=== PATIENT | female | born 1985 | race Caucasian/White ===

== ENCOUNTER 2016-08-23 13:39 | Emergency (ER) | payer SELFPAY ==
[~2016-08-23] VITALS: Ht 160 cm; Wt 75.0 kg
[~2016-08-23 13:39] MED LIST: AMOX875 PO; BACT800T5 PO; CEPH500C3 PO; FLUT1SPR9; HYDR-3533 PO; IBUP800T23 PO; ZITH250T PO
[2016-08-23 13:40] VITALS: BP 168/93; PULSE 98; RESP 16; TEMP 98.2; O2SAT 98
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
[2016-08-23] MEDS ORDERED: BACT800T5 PO (15:20)
== END 2016-08-23 15:46 | disposition home or self-care (01) ==
LOC: NEPK 13:39
DX: L03.114 Cellulitis of left upper limb (principal); S30.811A Abrasion of abdominal wall, initial encounter; Z72.0 Tobacco use; Z87.09 Personal history of other diseases of the respiratory system; Z86.59 Personal history of other mental and behavioral disorders; X58.XXXA Exposure to other specified factors, initial encounter
CPT/HCPCS: 99283

== ENCOUNTER 2016-09-02 12:51 | Emergency (ER) | payer SELFPAY ==
[~2016-09-02] VITALS: Ht 162.6 cm; Wt 69.0 kg
[2016-09-02 12:53] VITALS: BP 124/84; PULSE 112; RESP 20; TEMP 98.6; O2SAT 98
[2016-09-02 13:00] VITALS: BP 118/76; PULSE 108; RESP 19; O2SAT 98
[2016-09-02] MEDS ORDERED: TRAZ100T6 PO (13:10)
[2016-09-02] MEDS ORDERED: LAMO25 PO (13:10)
[2016-09-02] MEDS ORDERED: IBUPROFEN 600 MG TAB PO ONE (13:30)
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
== END 2016-09-02 15:12 | disposition home or self-care (01) ==
LOC: NEPD 12:51
DX: T74.21XA Adult sexual abuse, confirmed, initial encounter (principal); L02.512 Cutaneous abscess of left hand; J45.909 Unspecified asthma, uncomplicated; F31.9 Bipolar disorder, unspecified; K21.9 Gastro-esophageal reflux disease without esophagitis; F17.210 Nicotine dependence, cigarettes, uncomplicated; Z79.899 Other long term (current) drug therapy
CPT/HCPCS: 10060; 87070; 87205

== ENCOUNTER 2016-11-17 18:29 | Emergency (ER) | payer SELFPAY ==
[~2016-11-17] VITALS: Ht 162.6 cm; Wt 75.0 kg
[~2016-11-17 18:29] MED LIST changes: -AMOX875 PO; -CEPH500C3 PO; -FLUT1SPR9; -HYDR-3533 PO; -IBUP800T23 PO; +LAMO25 PO; +TRAZ100T6 PO; -ZITH250T PO
[2016-11-17 18:33] VITALS: BP 119/84; PULSE 94; RESP 13; TEMP 97.4; O2SAT 97
== END 2016-11-17 18:55 | disposition left against medical advice (07) ==
LOC: NED 18:29
DX: R10.9 Unspecified abdominal pain (principal)
CPT/HCPCS: 99281

== ENCOUNTER 2017-06-07 20:18 | Inpatient (IN) | payer SELFPAY ==
[~2017-06-07] VITALS: Ht 162.6 cm; Wt 70.8 kg
[~2017-06-07 20:18] MED LIST changes: +TRAZ100T10 PO; -TRAZ100T6 PO
[2017-06-07 20:33] VITALS: BP 163/102; PULSE 80; RESP 16; TEMP 98; O2SAT 99
--- NOTE | 2017-06-07 21:28 | PD ---
HPI Chief Complaint: Abdominal Pain Time Seen by Provider: 21:18 Travel History International Travel<30 days: No Contact w/Intl Traveler<30days: No Traveled to known affect area: No History of Present Illness HPI 32yo F with PMH of bipolar disorder presents to the ED with c/o abdominal pain today. Said pain is mainly upper abdomen and feels like sharp and pressure. Had nausea but no vomiting. Pt said she had coughed once and had burning in her chest after the cough. However, denies any chest pain or sob now. Denies any fever, vomiting, diarrhea, dysuria, hematuria, vaginal bleeding or discharge. PFSH Past Medical History Arthritis: No Asthma: Yes (USES ALBUTEROL ) Autoimmune Disease: No Blood Disorders: No Bipolar Disorder: Yes Anxiety: Yes Depression: Yes Heart Rhythm Problems: No Cancer: No Cardiovascular Problems: No High Cholesterol: No Chemotherapy: No Chest Pain: No Congestive Heart Failure: No COPD: No Cerebrovascular Accident: No Diabetes: No Diminished Hearing: No Endocrine: No GERD: Yes Glaucoma: No Genitourinary: No Headaches: Yes (REPORTS H/A ON ADMISSION TO ED) Hepatitis: No Hiatal Hernia: No Hypertension: No Immune Disorder: No Kidney Stones: No Musculoskeletal: No Neurologic: No Psychiatric: Yes Reproductive: No Respiratory: Yes (ASTHMA) Myocardial Infarction: No Radiation Therapy: No Renal Failure: No Seizures: No Sickle Cell Disease: No Sleep Apnea: No Thyroid Disease: No Ulcer: No ?: Unknown LMP: 05/08/17 : 1 Para: 0 : 1 Past Surgical History Surgical History: No Previous Surgery Abdominal Surgery: No AICD: No Arteriovenous Shunt: No Cardiac Surgery: No Ear Surgery: No Endocrine Surgery: No Eye Surgery: No Genitourinary Surgery: No Gynecologic Surgery: No Insulin Pump: No Joint Replacement: No Neurologic Surgery: No Oral Surgery: No Pacemaker: No Thoracic Surgery: No Other Surgery: No Social History Alcohol Use: Yes (OCCASSIONAL BEER) Tobacco Use: Yes (ONE CIGARETTE A DAY) Substance Use: Yes (marijuana) Allergies-Medications (Allergen,Severity, Reaction): Coded Allergies: No Known Allergies (Verified Adverse Reaction, Unknown, 06/07/17) Reported Meds & Prescriptions Reported Meds & Active Scripts Active Reported Trazodone (Trazodone HCl) 100 Mg Tablet 100 Mg PO HS Lamictal (Lamotrigine) 25 Mg Tab 25 Mg PO DAILY Review of Systems Except as stated in HPI: all other systems reviewed are Neg Physical Exam Narrative GENERAL: 32yo F in mild distress. SKIN: Focused skin assessment warm/dry. HEAD: Atraumatic. Normocephalic. EYES: Pupils equal and round. No scleral icterus. No injection or drainage. ENT: No nasal bleeding or discharge. Mucous membranes pink and moist. NECK: Trachea midline. No JVD. CARDIOVASCULAR: Regular rate and rhythm. No murmur appreciated. RESPIRATORY: No accessory muscle use. Clear to auscultation. Breath sounds equal bilaterally. GASTROINTESTINAL: Abdomen soft, +TTP epigastric and left upper abdomen. No RLQ ttp. No rebound tenderness or guarding. MUSCULOSKELETAL: No obvious deformities. No clubbing. No cyanosis. No edema. NEUROLOGICAL: Awake and alert. No obvious cranial nerve deficits. Motor grossly within normal limits. Normal speech. PSYCHIATRIC: Appropriate mood and affect; insight and judgment normal. Data Data Last Documented VS Vital Signs Date Time Temp Pulse Resp B/P (MAP) Pulse Ox O2 Delivery O2 Flow Rate FiO2 06/07/17 20:36 16 06/07/17 20:33 98.0 80 163/102 (122) 99 Orders Orders Complete Blood Count With Diff (06/07/17 21:23) Comprehensive Metabolic Panel (06/07/17 21:23) Lipase (06/07/17 21:23) Urinalysis - C+S If Indicated (06/07/17 21:23) Ondansetron Inj (Zofran Inj) (06/07/17 21:30) Al-Mag Hy-Si 40-40-4 Mg/Ml Liq (Mag-Al P (06/07/17 21:30) Lidocaine 2% Viscous (Xylocaine 2% Visco (06/07/17 21:30) Ed Urine Pregnancytest Poc (06/07/17 21:23) Ct Abd/Pel W Iv Contrast(Rout) (06/07/17 ) Sodium Chlor 0.9% 1000 Ml Inj (Ns 1000 M (06/07/17 22:45) Iohexol 350 Inj (Omnipaque 350 Inj) (06/07/17 23:11) Ketorolac Inj (Toradol Inj) (06/07/17 23:30) Admit Order (Ed Use Only) (06/07/17 23:41) Labs Laboratory Tests Test 06/07/17 21:50 White Blood Count 5.3 TH/MM3 Red Blood Count 4.06 MIL/MM3 Hemoglobin 12.0 GM/DL Hematocrit 36.1 % Mean Corpuscular Volume 89.0 FL Mean Corpuscular Hemoglobin 29.7 PG Mean Corpuscular Hemoglobin Concent 33.3 % Red Cell Distribution Width 16.0 % Platelet Count 237 TH/MM3 Mean Platelet Volume 8.5 FL Neutrophils (%) (Auto) 49.9 % Lymphocytes (%) (Auto) 32.9 % Monocytes (%) (Auto) 12.8 % Eosinophils (%) (Auto) 3.3 % Basophils (%) (Auto) 1.1 % Neutrophils # (Auto) 2.7 TH/MM3 Lymphocytes # (Auto) 1.8 TH/MM3 Monocytes # (Auto) 0.7 TH/MM3 Eosinophils # (Auto) 0.2 TH/MM3 Basophils # (Auto) 0.1 TH/MM3 CBC Comment DIFF FINAL Differential Comment Urine Color LIGHT-YELLOW Urine Turbidity CLEAR Urine pH 7.0 Urine Specific Durand 1.006 Urine Protein NEG mg/dL Urine Glucose (UA) NEG mg/dL Urine Ketones NEG mg/dL Urine Occult Blood NEG Urine Nitrite NEG Urine Bilirubin NEG Urine Urobilinogen LESS THAN 2.0 MG/DL Urine Leukocyte Esterase NEG Urine WBC LESS THAN 1 /hpf Urine Squamous Epithelial Cells 4 /hpf Microscopic Urinalysis Comment CULT NOT INDICATED Blood Urea Nitrogen 5 MG/DL Creatinine 0.56 MG/DL Random Glucose 107 MG/DL Total Protein 6.1 GM/DL Albumin 2.8 GM/DL Calcium Level 8.3 MG/DL Alkaline Phosphatase 141 U/L Aspartate Amino Transf (AST/SGOT) 536 U/L Alanine Aminotransferase (ALT/SGPT) 433 U/L Total Bilirubin 0.6 MG/DL Sodium Level 138 MEQ/L Potassium Level 3.7 MEQ/L Chloride Level 107 MEQ/L Carbon Dioxide Level 23.4 MEQ/L Anion Gap 8 MEQ/L Estimat Glomerular Filtration Rate 127 ML/MIN Lipase 594 U/L [facility] Medical Decision Making Medical Screen Exam Complete: Yes Emergency Medical Condition: Yes Differential Diagnosis Gastritis vs. peptic ulcer disease vs. pancreatitis vs. GERD Narrative Course 32yo F with upper abdominal pain and nausea today. Labs reviewed, no leukocytosis. H/H normal. Lipase elevated at 594. Liver enzymes also elevated which is new from prior. Pt does admit to recent binge drinking and said she does not drink alcohol every day but does drink a lot. UA showed WBC less than 1. Culture not indicated. Pt given zofran and GI cocktail. Pt reevaluated at bedside and pain has improved but still a little when I palpate. CT a/p showed CT findings of gallbladder wall thickening. No calcified gallstones however. Patient's pain is more epigastric and does not have pain with RUQ palpation. Will admit patient for pancreatitis, transaminitis and GI consult. Discussed with Dr. Cedeno and accepted to her service. Diagnosis Primary Impression: Pancreatitis Qualified Codes: K85.90 - Acute pancreatitis without necrosis or infection, unspecified Admitting Information Admitting Physician Requests: it Geovanna Anne DO June 07, 2017 21:28
[2017-06-07] MEDS ORDERED: ONDANSETRON HCL 4 MG/2 ML VIAL IVP ONE (21:30)
[2017-06-07] MEDS ORDERED: LIDOCAINE VISCOUS 2% SOLN 15 ML UDC PO ONE (21:30)
[2017-06-07] MEDS ORDERED: ALUMINUM/MAGNESIUM/SIMETH 30 ML CUP PO ONE (21:30)
[2017-06-07 22:01] LABS: AUTOMATED NEUTROPHIL # 2.7 TH/MM3 (1.8-7.7); BASOPHIL # 0.1 TH/MM3 (0-0.2); BASOPHIL % 1.1 % (0.0-2.0); EOSINOPHIL # 0.2 TH/MM3 (0-0.4); EOSINOPHIL % 3.3 % (0.0-4.0); HEMATOCRIT 36.1 % (35.0-46.0); LYMPH % 32.9 % (9.0-44.0); LYMPHOCYTE # 1.8 TH/MM3 (1.0-4.8); MEAN CORPUSCULAR HEMOGLOBIN 29.7 PG (27.0-34.0); MEAN CORPUSCULAR HGB CONC 33.3 % (32.0-36.0); MEAN PLATELET VOLUME 8.5 FL (7.0-11.0); MONO % 12.8 % (0.0-8.0); MONOCYTE # 0.7 TH/MM3 (0-0.9); NEUT % 49.9 % (16.0-70.0); PLATELET COUNT 237 TH/MM3 (150-450); RED BLOOD COUNT 4.06 MIL/MM3 (4.00-5.30); WHITE BLOOD COUNT 5.3 TH/MM3 (4.0-11.0)
[2017-06-07 22:13] LABS: BILIRUBIN, URINE NEG (NEG); BLOOD, URINE NEG (NEG); GLUCOSE,URINE NEG (NEG); KETONE, URINE NEG (NEG); NITRITE,URINE NEG (NEG); SQUAMOUS EPITHELIAL CELL URINE 4 /hpf (0-5); URINE COLOR LIGHT-YELLOW (YELLW/STRAW); URINE LEUKOCYTE ESTERASE NEG (NEG)
[2017-06-07 22:20] LABS: ALBUMIN 2.8 GM/DL (3.4-5.0); AST (GOT) 536 U/L (15-37); BICARBONATE 23.4 MEQ/L (21.0-32.0); BLOOD UREA NITROGEN 5 MG/DL (7-18); CALCIUM 8.3 MG/DL (8.5-10.1); CHLORIDE 107 MEQ/L (98-107); CREATININE 0.56 MG/DL (0.50-1.00); GLOMERULAR FILTRATION RATE 127 ML/MIN (>89); GLUCOSE,RANDOM 107 MG/DL (74-106); SODIUM (NA) 138 MEQ/L (136-145)
[2017-06-07 22:21] LABS: ALT (GPT) 433 U/L (10-53)
[2017-06-07 22:23] LABS: ALKALINE PHOSPHATASE 141 U/L (45-117); TOTAL BILIRUBIN ADULT 0.6 MG/DL (0.2-1.0); TOTAL PROTEIN 6.1 GM/DL (6.4-8.2)
[2017-06-07] MEDS ORDERED: SODIUM CHLOR 0.9% 1000 ML INJ 1,000 ML IV ONE (22:45)
[2017-06-07] MEDS ORDERED: IOHEXOL 350 MG/ML 10 ML VIAL (for RAD DIAG) IVCONTRAST ONE (23:11)
--- NOTE | 2017-06-07 23:26 | RADRPT ---
EXAM DATE/TIME: 06/07/2017 22:58 [facility] COMPARISON: No previous studies available for comparison. INDICATIONS : Upper abdominal pain. IV CONTRAST: 75 cc Omnipaque 350 (iohexol) IV ORAL CONTRAST: No oral contrast ingested. RADIATION DOSE: 6.64 CTDIvol (mGy) MEDICAL HISTORY : Gastroesophageal reflux disease. SURGICAL HISTORY : None. ENCOUNTER: Initial ACUITY: 1 day PAIN SCALE: 8/10 LOCATION: Bilateral upper quadrant TECHNIQUE: Volumetric scanning of the abdomen and pelvis was performed. Using automated exposure control and ad justment of the mA and/or kV according to patient size, radiation dose was kept as low as reasonably achievable to obtain optimal diagnostic quality images. DICOM format image data is available electro nically for review and comparison. FINDINGS: LOWER LUNGS: The visualized lower lungs are clear. LIVER: Focal hypodensity in the left hepatic lobe adjacent to falciform ligament likely represents focal fat ty infiltration. There is suggestion of some periportal edema. CT findings of gallbladder wall thicke keturah. No calcified gallstones. SPLEEN: Normal size without lesion. PANCREAS: Within normal limits. KIDNEYS: Normal in size and shape. There is no mass, stone or hydronephrosis. ADRENAL GLANDS: Within normal limits. VASCULAR: There is no aortic aneurysm. BOWEL/MESENTERY: The stomach, small bowel, and colon demonstrate no acute abnormality. There is no free intraperitone al air or fluid. ABDOMINAL WALL: Within normal limits. RETROPERITONEUM: There is no lymphadenopathy. BLADDER: No wall thickening or mass. REPRODUCTIVE: Within normal limits. INGUINAL: There is no lymphadenopathy or hernia. MUSCULOSKELETAL: Within normal limits for patient age. CONCLUSION: 1. CT findings of gallbladder wall thickening. No calcified gallstones, however. 2. Periportal edema. Nonspecific finding that can be seen with some passive congestion. Jeramy Malhotra MD on June 07, 2017 at 23:20 Board Certified Radiologist. This report was verified electronically.
[2017-06-07] MEDS ORDERED: KETOROLAC TROMETHAMINE 30 MG/ML (IVP) VIAL IV PUSH ONE (23:30)
[2017-06-07 23:59] VITALS: BP 145/94; PULSE 92; RESP 18; O2SAT 99
[2017-06-08] MEDS ORDERED: SODIUM CHLORIDE 0.9% FLUSH 10 ML FLUSH IV FLUSH PRN (01:00)
[2017-06-08] MEDS ORDERED: SENNOSIDES 8.6 MG TAB PO PRN (01:00)
[2017-06-08] MEDS ORDERED: BISACODYL 10 MG SUPP RECTAL PRN (01:00)
[2017-06-08] MEDS: traZODone HCL 100 MG TAB PO SCH ×2 (01:00→19:52)
[2017-06-08] MEDS ORDERED: NALOXONE HCL 0.4 MG/ML AMP IV PUSH PRN (01:00)
[2017-06-08] MEDS ORDERED: ONDANSETRON HCL 4 MG/2 ML VIAL IVP PRN (01:00)
[2017-06-08] MEDS ORDERED: traZODone HCL 100 MG TAB PO ONE (01:00)
[2017-06-08] MEDS ORDERED: LACTULOSE SYRUP 20 GM/30 ML CUP PO PRN (01:00)
[2017-06-08] MEDS ORDERED: LORazepam 2 MG TAB PO PRN (02:45)
[2017-06-08] MEDS ORDERED: LORazepam 1 MG TAB PO PRN (02:45)
[2017-06-08] MEDS ORDERED: FLUMAZENIL 0.5 MG/5 ML VIAL IV PUSH PRN (02:45)
[2017-06-08] MEDS ORDERED: LORazepam 2 MG/ML VIAL IV PUSH PRN ×4 (02:45)
--- NOTE | 2017-06-08 02:48 | HHI.HP ---
[facility] No Primary Care Physician Admission Diagnosis Pancreatitis, transaminitis Diagnoses: Travel History International Travel<30 Days: No Contact w/Intl Traveler <30 Da: No Traveled to Known Affected Are: No History of Present Illness 32-year-old female with a past medical history significant for bipolar disorder and alcohol abuse presents the emergency department for the evaluation of epigastric pain. The patient reports that the pain started yesterday and that it is isolated to the epigastrium. She states it is a sharp, knifelike pain. She has been nauseated but no emesis/diarrhea. Denies any chest pain or shortness of breath. Denies any fever/chills. No weakness or fatigue. No lateralizing signs/symptoms. Review of Systems Except as stated in HPI: all other systems reviewed are Neg Past Family Social History Past Medical History Bipolar disorder Alcohol abuse Past Surgical History None Reported Medications Reported Meds & Active Scripts Active Reported Trazodone (Trazodone HCl) 100 Mg Tablet 100 Mg PO HS Lamictal (Lamotrigine) 25 Mg Tab 25 Mg PO DAILY Allergies: Coded Allergies: No Known Allergies (Verified Allergy, Unknown, 06/08/17) Family History Negative for CAD/DM Social History Positive tobacco, marijuana and cocaine. Last use of cocaine was 4 days ago. Has been drinking approximately 6 - 16 ounce beers daily. Physical Exam Vital Signs Vital Signs Date Time Temp Pulse Resp B/P (MAP) Pulse Ox O2 Delivery O2 Flow Rate FiO2 06/07/17 23:59 92 18 145/94 (111) 99 Room Air 06/07/17 20:36 16 06/07/17 20:33 98.0 80 16 163/102 (122) 99 Physical Exam GENERAL: female lying in bed SKIN: No rashes, ecchymoses or lesions. Cool and dry. HEAD: Atraumatic. Normocephalic. No temporal or scalp tenderness. EYES: Pupils equal round and reactive. Extraocular motions intact. No scleral icterus. No injection or drainage. ENT: Nose without bleeding, purulent drainage or septal hematoma. Throat without erythema, tonsillar hypertrophy or exudate. Uvula midline. Airway patent. NECK: Trachea midline. No JVD or lymphadenopathy. Supple, nontender, no meningeal signs. CARDIOVASCULAR: Regular rate and rhythm without murmurs, gallops, or rubs. RESPIRATORY: Clear to auscultation. Breath sounds equal bilaterally. No wheezes , rales, or rhonchi. GASTROINTESTINAL: Abdomen soft, exquisitely tender to palpation in the epigastrium and right upper quadrant, nondistended. Positive Posada's sign. MUSCULOSKELETAL: Extremities without clubbing, cyanosis, or edema. No joint tenderness, effusion, or edema noted. No calf tenderness. Negative Homans sign bilaterally. NEUROLOGICAL: Awake and alert. Cranial nerves II through XII intact. Motor and sensory grossly within normal limits. Normal speech. Laboratory Laboratory Tests Test 06/07/17 21:50 06/08/17 01:15 White Blood Count 5.3 Red Blood Count 4.06 Hemoglobin 12.0 Hematocrit 36.1 Mean Corpuscular Volume 89.0 Mean Corpuscular Hemoglobin 29.7 Mean Corpuscular Hemoglobin Concent 33.3 Red Cell Distribution Width 16.0 Platelet Count 237 Mean Platelet Volume 8.5 Neutrophils (%) (Auto) 49.9 Lymphocytes (%) (Auto) 32.9 Monocytes (%) (Auto) 12.8 Eosinophils (%) (Auto) 3.3 Basophils (%) (Auto) 1.1 Neutrophils # (Auto) 2.7 Lymphocytes # (Auto) 1.8 Monocytes # (Auto) 0.7 Eosinophils # (Auto) 0.2 Basophils # (Auto) 0.1 CBC Comment DIFF FINAL Differential Comment Urine Color LIGHT-YELLOW Urine Turbidity CLEAR Urine pH 7.0 Urine Specific [place] 1.006 Urine Protein NEG Urine Glucose (UA) NEG Urine Ketones NEG Urine Occult Blood NEG Urine Nitrite NEG Urine Bilirubin NEG Urine Urobilinogen LESS THAN 2.0 Urine Leukocyte Esterase NEG Urine WBC LESS THAN 1 Urine Squamous Epithelial Cells 4 Microscopic Urinalysis Comment CULT NOT INDICATED Blood Urea Nitrogen 5 Creatinine 0.56 Random Glucose 107 Total Protein 6.1 Albumin 2.8 Calcium Level 8.3 Alkaline Phosphatase 141 Aspartate Amino Transf (AST/SGOT) 536 Alanine Aminotransferase (ALT/SGPT) 433 Total Bilirubin 0.6 Sodium Level 138 Potassium Level 3.7 Chloride Level 107 Carbon Dioxide Level 23.4 Anion Gap 8 Estimat Glomerular Filtration Rate 127 Lipase 594 Result Diagram: 06/07/17214906/07/172149 Caprini VTE Risk Assessment Caprini VTE Risk Assessment: No/Low Risk (score <= 1) Caprini Risk Assessment Model Point Value = 1 Point Value = 2 Point Value = 3 Point Value = 5 Age 41-60 Minor surgery BMI > 25 kg/m2 Swollen legs Varicose veins or History of unexplained or recurrent spontaneous Oral contraceptives or hormone replacement Sepsis (< 1 month) Serious lung disease, including pneumonia (< 1 month) Abnormal pulmonary function Acute myocardial infarction Congestive heart failure (< 1 month) History of inflammatory bowel disease Medical patient at bed rest Age 61-74 Arthroscopic surgery Major open surgery (> 45 min) Laparoscopic surgery (> 45 min) Malignancy Confined to bed (> 72 hours) Immobilizing plaster cast Central venous access Age >= 75 History of VTE Family history of VTE Factor V Leiden Prothrombin [id number] Lupus anticoagulant Anticardiolipin antibodies Elevated serum homocysteine Heparin-induced thrombocytopenia Other congenital or acquired thrombophilia Stroke (< 1 month) Elective arthroplasty Hip, pelvis, or leg fracture Acute spinal cord injury (< 1 month) Prophylaxis Regimen Total Risk Factor Score Risk Level Prophylaxis Regimen 0-1 Low Early ambulation 2 Moderate Order ONE of the following: *Sequential Compression Device (SCD) *Heparin 5000 units SQ BID 3-4 Higher Order ONE of the following medications: *Heparin 5000 units SQ TID *Enoxaparin/Lovenox 40 mg SQ daily (WT < 150 kg, CrCl > 30 mL/min) *Enoxaparin/Lovenox 30 mg SQ daily (WT < 150 kg, CrCl > 10-29 mL/min) *Enoxaparin/Lovenox 30 mg SQ BID (WT < 150 kg, CrCl > 30 mL/min) AND/OR *Sequential Compression Device (SCD) 5 or more Highest Order ONE of the following medications: *Heparin 5000 units SQ TID (Preferred with Epidurals) *Enoxaparin/Lovenox 40 mg SQ daily (WT < 150 kg, CrCl > 30 mL/min) *Enoxaparin/Lovenox 30 mg SQ daily (WT < 150 kg, CrCl > 10-29 mL/min) *Enoxaparin/Lovenox 30 mg SQ BID (WT < 150 kg, CrCl > 30 mL/min) AND *Sequential Compression Device (SCD) Assessment and Plan Assessment and Plan Assessment/plan: 1. Transaminitis/abdominal pain CT of the abdomen/pelvis significant for gallbladder wall thickening and periportal edema Bilirubin within normal limits, lipase mildly elevated. AST/ALT/alk phos 536/ 433/141 Hepatitis profile pending May be secondary to alcohol use Gastroenterology consulted, appreciate recommendations 2. Bipolar disorder Continue home medications 3. Alcohol abuse Thiamine/folate/multivitamins CIWA protocol Monitor for signs of withdrawal FEN NPO Electrolytes: Monitor and replete as needed NS at 80 cc/hr Physician Certification 2 Midnight Certification Type: Admission for Inpatient Services Order for Inpatient Services The services are ordered in accordance with Medicare regulations or non- Medicare payer requirements, as applicable. In the case of services not specified as inpatient-only, they are appropriately provided as inpatient services in accordance with the 2-midnight benchmark. Estimated LOS (days): 2 2 days is the estimated time the patient will need to remain in the hospital, assuming treatment plan goals are met and no additional complications. Post-Hospital Plan: Not yet determined Lilia Cedeno MD June 08, 2017 02:48
[2017-06-08] MEDS: SODIUM CHLOR 0.9% 1000 ML INJ 1,000 ML IV SCH ×2 (03:40→16:24)
[2017-06-08] MEDS: MORPHINE SULFATE 4 MG/ML INJ IV PUSH PRN ×7 (03:44→22:50)
[2017-06-08 04:52] VITALS: BP 108/64; PULSE 78; RESP 18; TEMP 97.8; O2SAT 92
[2017-06-08 08:25] VITALS: BP 127/75; PULSE 64; RESP 16; TEMP 97.8; O2SAT 95
[2017-06-08] MEDS ORDERED: INFLUENZA VIRUS VACCINE (QUADRIVALENT) 0.5 ML SYR IM ONE (09:00)
--- NOTE | 2017-06-08 09:11 | HHI.PR ---
Subjective Remarks Follow up for pancreatitis, transaminitis, elevated LFTs. The patient reports continued epigastric and RUQ abdominal pain, described as constant 7/10 sharp stabbing pains. She reports intermittent nausea but no vomiting. Denies fevers or chills. Last BM yesterday, prior to this she was constipated, relieved by Miralax. Denies any diarrhea. Denies any prior diagnosis of Hepatitis. Admits to recent IVDU with heroin. She denies any prior similar episode or any history of gallbladder disease. Denies any other medical complaints at this time. Objective Vitals Vital Signs Date Time Temp Pulse Resp B/P (MAP) Pulse Ox O2 Delivery O2 Flow Rate FiO2 06/08/17 08:25 97.8 64 16 127/75 (92) 95 06/08/17 04:52 97.8 78 18 108/64 (79) 92 06/07/17 23:59 92 18 145/94 (111) 99 Room Air 06/07/17 20:36 16 06/07/17 20:33 98.0 80 16 163/102 (122) 99 Result Diagram: 06/07/17214906/07/172149 Imaging Last Impressions Abdomen/Pelvis CT 06/07/17 0000 Signed Impressions: Service Date/Time: Wednesday, June 07, 2017 22:58 - CONCLUSION: 1. CT findings of gallbladder wall thickening. No calcified gallstones, however. 2. Periportal edema. Nonspecific finding that can be seen with some passive congestion. Jeramy Malhotra MD Objective Remarks GENERAL: Well-nourished, well-developed young female patient in [facility]. SKIN: Warm and dry. No rash. HEENT: Normocephalic. Atraumatic. Pupils equal and round. Mucous membranes pink and moist. NECK: Supple. Trachea midline. CARDIOVASCULAR: Regular rate and rhythm. S1, S2 noted. No murmur appreciated. RESPIRATORY: No accessory muscle use. Clear to auscultation. Breath sounds equal bilaterally. GASTROINTESTINAL: Abdomen soft, nondistended, epigastric and RUQ TTP. Normoactive bowel sounds x4. MUSCULOSKELETAL: No obvious deformities. Extremities without clubbing, cyanosis , or edema. NEUROLOGICAL: Awake and alert. No obvious cranial nerve deficits. Motor grossly within normal limits. Normal speech. PSYCHIATRIC: Appropriate mood and affect; insight and judgment normal. Medications and IVs Current Medications Medications (Trade) Dose Ordered Sig/Irina Route Start Time Stop Time Status Last Admin Sodium Chloride 1,000 ml @ 80 mls/hr [id number] IV 06/08/17 00:51 06/08/17 03:40 (NS Flush) 2 ml UNSCH PRN IV FLUSH 06/08/17 01:00 (NS Flush) 2 ml BID IV FLUSH 06/08/17 09:00 06/08/17 09:58 (Zofran Inj) 4 mg Q6H PRN IVP 06/08/17 01:00 (Narcan Inj) 0.4 mg UNSCH PRN IV PUSH 06/08/17 01:00 (Melissa-Colace) 1 tab BID PO 06/08/17 09:00 06/08/17 09:59 (Milk Of Magnesia Liq) 30 ml Q12H PRN PO 06/08/17 01:00 (Senokot) 17.2 mg Q12H PRN PO 06/08/17 01:00 (Dulcolax Supp) 10 mg DAILY PRN RECTAL 06/08/17 01:00 (Lactulose Liq) 30 ml DAILY PRN PO 06/08/17 01:00 (Morphine Inj) 4 mg Q3H PRN IV PUSH 06/08/17 01:00 06/08/17 09:57 (LaMICtal) 25 mg DAILY PO 06/08/17 09:00 06/08/17 09:59 (Desyrel) 100 mg HS PO 06/08/17 01:00 (Folate) 1 mg DAILY PO 06/08/17 09:00 06/13/17 08:59 06/08/17 09:59 (Vitamin B1) 100 mg DAILY PO 06/08/17 09:00 06/08/17 09:59 (Theragran M Tab) 1 tab DAILY PO 06/08/17 09:00 06/13/17 08:59 06/08/17 09:59 (Romazicon Inj) 0.2 mg Q1M PRN IV PUSH 06/08/17 02:45 (Ativan) 1 mg Q4H PRN PO 06/08/17 02:45 (Ativan Inj) 1 mg Q4H PRN IV PUSH 06/08/17 02:45 (Ativan) 2 mg Q2H PRN PO 06/08/17 02:45 (Ativan Inj) 2 mg Q2H PRN IV PUSH 06/08/17 02:45 (Ativan Inj) 2 mg Q1H PRN IV PUSH 06/08/17 02:45 (Ativan Inj) 2 mg Q15M PRN IV PUSH 06/08/17 02:45 A/P Assessment and Plan 32-year-old female with a past medical history significant for IVDU, bipolar disorder and alcohol abuse presents the emergency department for the evaluation of epigastric pain. Pancreatitis/Transaminitis/Abdominal pain: acute. -CT of the abdomen/pelvis significant for gallbladder wall thickening and periportal edema -Bilirubin within normal limits, lipase mildly elevated at 594. AST/ALT/alk phos 536/433/141 -Hepatitis profile positive for Hep C ab -Supportive treatment with IVF hydration, antiemetics prn, and IV morphine prn pain -Gastroenterology consulted, appreciate recommendations Hepatitis C: diagnosed on this admission. +IVDU recently -GI consulted as above -patient will need to be 6months drug free prior to hep C treatment -outpatient f/up with GI Bipolar disorder -Continue home medications Alcohol abuse -Continue Thiamine/folate/multivitamins -[facility] protocol -Monitor for signs of withdrawal DVT Prophylaxis: teds/SCDs; avoid chemoprophylaxis incase surgery is indicated Discharge Planning Pending further clinical improvement and GI clearance. Suspect additional 2-3 days of inpatient treatment. Charu Dao PA-C June 08, 2017 9:11 am
[2017-06-08] MEDS: SODIUM CHLORIDE 0.9% FLUSH 10 ML FLUSH IV FLUSH SCH ×2 (09:58→19:48)
[2017-06-08] MEDS: lamoTRIgine 25 MG TAB PO SCH (09:59)
[2017-06-08] MEDS: DOCUSATE SODIUM 50 MG/SENNA 8.6 MG TAB PO SCH ×2 (09:59→19:48)
[2017-06-08] MEDS: FOLIC ACID 1 MG TAB PO SCH (09:59)
[2017-06-08] MEDS: MULTIVITAMINS/MINERALS THERAPEUTIC TAB PO SCH (09:59)
[2017-06-08] MEDS: THIAMINE HCL 100 MG TAB PO SCH (09:59)
--- NOTE | 2017-06-08 10:38 | PD.CONS ---
HPI History of Present Illness This is a 32 year old female with hx etoh abuse, IVDU, bipolar disorder who presented to ER with abd pain. SHe started noticing epigastric pain 1 week ago that resolved and then returned more severely yesterday. Never had this pain before. SHe has been nauseous. No vomiting, diarrhea, blood in stool, black tarry stool. SHe admits to consuming etoh 3-4 times weekly, 6-10 beer per session. She says this is less than she used to drink; used to drink daily. SHe admits to recently relapsing with IV heroin. SHe verbalizes desire to quit drinking and stop IVDU. Never had EGD or colonoscopy. (Kanika Monson) PFSH Past Medical History Bipolar disorder Alcohol abuse Past Surgical History None (Kanika Monson) Coded Allergies: No Known Allergies (Verified Allergy, Unknown, 06/08/17) Family History Negative for CAD/DM Social History Positive tobacco, marijuana and cocaine. Last use of cocaine was 4 days ago. Has been drinking approximately 6 - 16 ounce beers daily. (Kanika Monson) Review of Systems Constitutional: COMPLAINS OF: Diaphoretic episodes, DENIES: Fever Endocrine: DENIES: Polydipsia Eyes: DENIES: Blurred vision Ears, nose, mouth, throat: DENIES: Hearing loss Respiratory: DENIES: Cough Cardiovascular: DENIES: Chest pain Gastrointestinal: COMPLAINS OF: Abdominal pain, Nausea, DENIES: Black stools, Bloody stools, Vomiting, Hematemesis Genitourinary: DENIES: Hematuria Musculoskeletal: DENIES: Joint pain Integumentary: DENIES: Jaundice Hematologic/lymphatic: DENIES: Bruising Immunologic/allergic: DENIES: Eczema Neurologic: DENIES: Abnormal gait Psychiatric: DENIES: Confusion (Kanika Monson) GI Exam Vitals I&O Vital Signs Date Time Temp Pulse Resp B/P (MAP) Pulse Ox O2 Delivery O2 Flow Rate FiO2 06/08/17 08:25 97.8 64 16 127/75 (92) 95 06/08/17 04:52 97.8 78 18 108/64 (79) 92 06/07/17 23:59 92 18 145/94 (111) 99 Room Air 06/07/17 20:36 16 06/07/17 20:33 98.0 80 16 163/102 (122) 99 Imaging Last Impressions Abdomen/Pelvis CT 06/07/17 0000 Signed Impressions: Service Date/Time: Wednesday, June 07, 2017 22:58 - CONCLUSION: 1. CT findings of gallbladder wall thickening. No calcified gallstones, however. 2. Periportal edema. Nonspecific finding that can be seen with some passive congestion. Jeramy Malhotra MD Laboratory Test 06/07/17 21:50 06/08/17 01:15 White Blood Count 5.3 TH/MM3 Red Blood Count 4.06 MIL/MM3 Hemoglobin 12.0 GM/DL Hematocrit 36.1 % Mean Corpuscular Volume 89.0 FL Mean Corpuscular Hemoglobin 29.7 PG Mean Corpuscular Hemoglobin Concent 33.3 % Red Cell Distribution Width 16.0 % Platelet Count 237 TH/MM3 Mean Platelet Volume 8.5 FL Neutrophils (%) (Auto) 49.9 % Lymphocytes (%) (Auto) 32.9 % Monocytes (%) (Auto) 12.8 % Eosinophils (%) (Auto) 3.3 % Basophils (%) (Auto) 1.1 % Neutrophils # (Auto) 2.7 TH/MM3 Lymphocytes # (Auto) 1.8 TH/MM3 Monocytes # (Auto) 0.7 TH/MM3 Eosinophils # (Auto) 0.2 TH/MM3 Basophils # (Auto) 0.1 TH/MM3 CBC Comment DIFF FINAL Differential Comment Urine Color LIGHT-YELLOW Urine Turbidity CLEAR Urine pH 7.0 Urine Specific [place] 1.006 Urine Protein NEG mg/dL Urine Glucose (UA) NEG mg/dL Urine Ketones NEG mg/dL Urine Occult Blood NEG Urine Nitrite NEG Urine Bilirubin NEG Urine Urobilinogen LESS THAN 2.0 MG/DL Urine Leukocyte Esterase NEG Urine WBC LESS THAN 1 /hpf Urine Squamous Epithelial Cells 4 /hpf Microscopic Urinalysis Comment CULT NOT INDICATED Blood Urea Nitrogen 5 MG/DL Creatinine 0.56 MG/DL Random Glucose 107 MG/DL Total Protein 6.1 GM/DL Albumin 2.8 GM/DL Calcium Level 8.3 MG/DL Alkaline Phosphatase 141 U/L Aspartate Amino Transf (AST/SGOT) 536 U/L Alanine Aminotransferase (ALT/SGPT) 433 U/L Total Bilirubin 0.6 MG/DL Sodium Level 138 MEQ/L Potassium Level 3.7 MEQ/L Chloride Level 107 MEQ/L Carbon Dioxide Level 23.4 MEQ/L Anion Gap 8 MEQ/L Estimat Glomerular Filtration Rate 127 ML/MIN Lipase 594 U/L Hepatitis A IgM Antibody NONREACTIVE Hepatitis B Surface Antigen NONREACTIVE Hepatitis B Core IgM Antibody NONREACTIVE Hepatitis C IgG Antibody REACTIVE Physical Examination HEENT: PERRL; normocephalic; atraumatic; no jaundice. CHEST: CTA CARDIAC: RRR. ABDOMEN: Soft, nondistended, TTP RUQ and epigastrium; no hepatosplenomegaly; bowel sounds are present in all four quadrants. EXTREMITIES: No clubbing, cyanosis, or edema. SKIN: Normal; no rash; no jaundice. BAND SAW MARKER: No focal deficits; alert and oriented times three. (Kanika Monson) Assessment and Plan Plan ASSESSMENT - abd pain, elevated lipase - RUQ and epigastrium. ? pancreatitis. CT showed GB wall thickening, periportal edema, pancreas normal - elevated LFTs - etoh vs hep c . she is pos for hep c ab. will get genotype and quant, liver w/u r/o other cause. PLAN - liver w/u - hep c genotype and quant - monitor lipase - monitor LFTs - if appropriate outpt tx for hep c, will need to be drug free 6 months - etoh, drug cessation, pt verbalizes desire for assistance - could consider EGD - further recs to follow pt seen by myself and Dr Shepherd and this note is on his behalf (Kanika oMnson) Plan Patient was seen and examined, agree with above note, will plan on doing liver workup if abdominal pain persists we will need upper endoscopy (Gerry Shepherd MD) Kanika Monson June 08, 2017 10:38 Gerry Shepherd MD June 08, 2017 21:04
[2017-06-08 12:15] VITALS: BP 118/79; PULSE 70; RESP 18; TEMP 97.6; O2SAT 97
[2017-06-08 15:15] VITALS: BP 127/77; PULSE 77; RESP 18; TEMP 97.4; O2SAT 96
[2017-06-08 16:01] VITALS: BP 121/75; PULSE 67; RESP 16; TEMP 97.7; O2SAT 94
[2017-06-08] MEDS: BENZONATATE 100 MG CAP PO PRN (18:50)
[2017-06-08 19:50] VITALS: BP 111/63; PULSE 77; RESP 16; TEMP 98; O2SAT 97
[2017-06-09] VITALS: BP 135/77; PULSE 70; RESP 20; TEMP 97.3; O2SAT 100
[2017-06-09] MEDS: BENZONATATE 100 MG CAP PO PRN ×2 (02:20→14:18)
[2017-06-09] MEDS: MORPHINE SULFATE 4 MG/ML INJ IV PUSH PRN ×7 (02:20→23:58)
[2017-06-09] MEDS: SODIUM CHLOR 0.9% 1000 ML INJ 1,000 ML IV SCH ×2 (02:23→14:21)
[2017-06-09] MEDS ORDERED: traMADol HCL 50 MG TAB PO ONE (05:45)
[2017-06-09 05:46] VITALS: BP 111/62; PULSE 81; RESP 18; TEMP 98.4; O2SAT 92
[2017-06-09 06:23] LABS: AUTOMATED NEUTROPHIL # 1.9 TH/MM3 (1.8-7.7); BASOPHIL % 1.1 % (0.0-2.0); EOSINOPHIL # 0.2 TH/MM3 (0-0.4); EOSINOPHIL % 5.1 % (0.0-4.0); HEMATOCRIT 38.4 % (35.0-46.0); HEMOGLOBIN 12.7 GM/DL (11.6-15.3); LYMPHOCYTE # 1.5 TH/MM3 (1.0-4.8); MEAN CELL VOLUME 89.3 FL (80.0-100.0); MEAN CORPUSCULAR HEMOGLOBIN 29.6 PG (27.0-34.0); MEAN CORPUSCULAR HGB CONC 33.2 % (32.0-36.0); MEAN PLATELET VOLUME 8.3 FL (7.0-11.0); MONO % 13.7 % (0.0-8.0); MONOCYTE # 0.6 TH/MM3 (0-0.9); NEUT % 45.1 % (16.0-70.0); PLATELET COUNT 248 TH/MM3 (150-450); RED CELL DISTRIBUTION WIDTH 15.8 % (11.6-17.2); WHITE BLOOD COUNT 4.2 TH/MM3 (4.0-11.0)
[2017-06-09 06:56] LABS: ALBUMIN 2.6 GM/DL (3.4-5.0); ALT (GPT) 450 U/L (10-53); AST (GOT) 586 U/L (15-37); BLOOD UREA NITROGEN 2 MG/DL (7-18); CALCIUM 8.2 MG/DL (8.5-10.1); CHLORIDE 107 MEQ/L (98-107); CREATININE 0.54 MG/DL (0.50-1.00); GLOMERULAR FILTRATION RATE 133 ML/MIN (>89); GLUCOSE,RANDOM 85 MG/DL (74-106); IRON (FE) 32 MCG/DL (50-170); SODIUM (NA) 142 MEQ/L (136-145)
[2017-06-09 06:58] LABS: % SATURATION IRON PROFILE 7.4 % (20-50); ACETAMINOPHEN LESS THAN 2.0 MCG/ML (10.0-30.0); ALKALINE PHOSPHATASE 121 U/L (45-117); FERRITIN 30 NG/ML (8-252); TOTAL BILIRUBIN ADULT 0.6 MG/DL (0.2-1.0); TOTAL IRON BINDING CAPACITY 434 MCG/DL (250-450); TOTAL PROTEIN 5.8 GM/DL (6.4-8.2)
[2017-06-09 07:31] VITALS: BP 106/61; PULSE 64; RESP 19; TEMP 97.7; O2SAT 94
[2017-06-09] MEDS: DOCUSATE SODIUM 50 MG/SENNA 8.6 MG TAB PO SCH ×2 (08:53→20:40)
[2017-06-09] MEDS: THIAMINE HCL 100 MG TAB PO SCH (08:53)
[2017-06-09] MEDS: FOLIC ACID 1 MG TAB PO SCH (08:53)
[2017-06-09] MEDS: lamoTRIgine 25 MG TAB PO SCH (08:53)
[2017-06-09] MEDS: MULTIVITAMINS/MINERALS THERAPEUTIC TAB PO SCH (08:53)
[2017-06-09] MEDS: SODIUM CHLORIDE 0.9% FLUSH 10 ML FLUSH IV FLUSH SCH ×2 (08:54→20:53)
--- NOTE | 2017-06-09 09:37 | HHI.GIFU ---
Subjective Remarks Pt resting in bed in NAD. Pain is improving. tolerating clears. (Kanika Monson) Objective Vitals I&O Vital Signs Date Time Temp Pulse Resp B/P (MAP) Pulse Ox O2 Delivery O2 Flow Rate FiO2 06/09/17 07:31 97.7 64 19 106/61 (76) 94 06/09/17 05:46 98.4 81 18 111/62 (78) 92 06/09/17 00:00 97.3 70 20 135/77 (96) 100 06/08/17 19:50 98.0 77 16 111/63 (79) 97 06/08/17 16:01 97.7 67 16 121/75 (90) 94 06/08/17 12:15 97.6 70 18 118/79 (92) 97 Laboratory Laboratory Tests Test 06/09/17 06:00 White Blood Count 4.2 Red Blood Count 4.30 Hemoglobin 12.7 Hematocrit 38.4 Mean Corpuscular Volume 89.3 Mean Corpuscular Hemoglobin 29.6 Mean Corpuscular Hemoglobin Concent 33.2 Red Cell Distribution Width 15.8 Platelet Count 248 Mean Platelet Volume 8.3 Neutrophils (%) (Auto) 45.1 Lymphocytes (%) (Auto) 35.0 Monocytes (%) (Auto) 13.7 Eosinophils (%) (Auto) 5.1 Basophils (%) (Auto) 1.1 Neutrophils # (Auto) 1.9 Lymphocytes # (Auto) 1.5 Monocytes # (Auto) 0.6 Eosinophils # (Auto) 0.2 Basophils # (Auto) 0.0 CBC Comment DIFF FINAL Differential Comment Blood Urea Nitrogen 2 Creatinine 0.54 Random Glucose 85 Total Protein 5.8 Albumin 2.6 Calcium Level 8.2 Alkaline Phosphatase 121 Aspartate Amino Transf (AST/SGOT) 586 Alanine Aminotransferase (ALT/SGPT) 450 Total Bilirubin 0.6 Sodium Level 142 Potassium Level 4.0 Chloride Level 107 Carbon Dioxide Level 29.0 Anion Gap 6 Estimat Glomerular Filtration Rate 133 Iron Level 32 Total Iron Binding Capacity 434 Percent Iron Saturation 7.4 Ferritin 30 Lipase 247 Acetaminophen Level LESS THAN 2.0 Imaging Last Impressions Abdomen/Pelvis CT 06/07/17 0000 Signed Impressions: Service Date/Time: Wednesday, June 07, 2017 22:58 - CONCLUSION: 1. CT findings of gallbladder wall thickening. No calcified gallstones, however. 2. Periportal edema. Nonspecific finding that can be seen with some passive congestion. Jeramy Malhotra MD Physical Exam HEENT: Pupils round and reactive to light; normocephalic; atraumatic; no jaundice. CHEST: CTA CARDIAC: RRR ABDOMEN: Soft, nondistended, mild epigastric TTP; no hepatosplenomegaly; bowel sounds are present in all four quadrants. EXTREMITIES: No clubbing, cyanosis, or edema. SKIN: Normal; no rash; no jaundice. VIRTUAL CUSTOMER ASSISTANT: No focal deficits; alert and oriented times three. (Kanika Monson) Assessment and Plan Plan ASSESSMENT - abd pain, elevated lipase - RUQ and epigastrium. ? pancreatitis. CT showed GB wall thickening, periportal edema, pancreas normal - elevated LFTs - etoh vs hep c . she is pos for hep c ab. will get genotype and quant, liver w/u r/o other cause. 06/09/17 pain improving. Lipase WNL today.. liver w/u is pending. little change LFTs PLAN - low fat diet - await liver w/u - await hep c genotype and quant - monitor LFTs - if appropriate outpt tx for hep c, will need to be drug free 6 months - etoh, drug cessation, pt verbalizes desire for assistance - EGD if pain fails to improve pt seen by myself and Dr Shepherd and this note is on his behalf (Kanika Monson) Plan Patient was seen and examined, agree with above note, most likely will need EGD tomorrow if pain persist, patient agreeable to have it done (Gerry Shepherd MD) Kanika Monson June 09, 2017 09:37 Gerry Shepherd MD June 09, 2017 20:02
[2017-06-09 11:34] VITALS: BP 122/88; PULSE 75; RESP 20; TEMP 97.7; O2SAT 97
--- NOTE | 2017-06-09 14:42 | HHI.PR ---
Subjective Remarks Patient still complains of abdominal pain. Possible EGD tomorrow. HIDA scan ordered. She does have improvement in her lipase. Transaminitis has worsened overnight. Objective Vital Signs Date Time Temp Pulse Resp B/P (MAP) Pulse Ox O2 Delivery O2 Flow Rate FiO2 06/09/17 11:34 97.7 75 20 122/88 (99) 97 06/09/17 07:31 97.7 64 19 106/61 (76) 94 06/09/17 05:46 98.4 81 18 111/62 (78) 92 06/09/17 00:00 97.3 70 20 135/77 (96) 100 06/08/17 19:50 98.0 77 16 111/63 (79) 97 06/08/17 16:01 97.7 67 16 121/75 (90) 94 Result Diagram: 06/09/17 0600 06/09/17 0600 Objective Remarks GENERAL: NAD, A&Ox3 HEAD: Normocephalic. NECK: Supple, trachea midline. No lymphadenopathy. EYES: No scleral icterus. No injection or drainage. CARDIOVASCULAR: Regular rate and rhythm without murmurs, gallops, or rubs. RESPIRATORY: Breath sounds equal bilaterally. No accessory muscle use. GASTROINTESTINAL: Abdomen soft, non-tender, nondistended. MUSCULOSKELETAL: No cyanosis, or edema. SKIN: Warm and dry. NEURO: No focal neurological deficitis. A/P Problem List: (1) Pancreatitis ICD Code: K85.90 - Acute pancreatitis without necrosis or infection, unspecified Status: Acute Assessment and Plan 32-year-old female with a past medical history significant for IVDU, bipolar disorder and alcohol abuse presents the emergency department for the evaluation of epigastric pain. Pancreatitis/Transaminitis/Abdominal pain Transaminitis is worsened Pancreatitis improving Continue to follow lipase and LFTs GI following Possible EGD HIDA scan ordered Hepatitis C Standard precautions Avoidance of IV drug abuse recommended Bipolar disorder Continue baseline treatments Alcohol abuse Monitor for delirium tremens Continue thiamine Continue folic acid Continue multivitamin Continue CIWA protocol DVT prophylaxis SCDs Problem Qualifiers (1) Pancreatitis: Qualified Codes: K85.90 - Acute pancreatitis without necrosis or infection, unspecified Pardeep Bateman MD June 09, 2017 14:42
[2017-06-09 15:31] VITALS: BP 110/57; PULSE 75; RESP 20; TEMP 97.8; O2SAT 95
[2017-06-09] MEDS: traZODone HCL 100 MG TAB PO SCH (20:41)
[2017-06-09] MEDS: MAGNESIUM HYDROXIDE SUSP 30 ML CUP PO PRN (20:47)
[2017-06-09] MEDS: NICOTINE 21 MG/24 HR PATCH T-DERMAL SCH (20:53)
[2017-06-09 21:16] VITALS: BP 116/68; PULSE 59; RESP 20; TEMP 98.2; O2SAT 96
[2017-06-10 00:54] VITALS: BP 105/61; PULSE 60; RESP 20; TEMP 97.9; O2SAT 95
[2017-06-10] MEDS: SODIUM CHLOR 0.9% 1000 ML INJ 1,000 ML IV SCH ×2 (02:51→08:53)
[2017-06-10] MEDS: BENZONATATE 100 MG CAP PO PRN ×2 (03:58→14:20)
[2017-06-10] MEDS: MORPHINE SULFATE 4 MG/ML INJ IV PUSH PRN ×6 (03:58→21:01)
[2017-06-10 04:54] VITALS: BP 118/56; PULSE 64; RESP 20; TEMP 98.1; O2SAT 94
[2017-06-10 06:27] LABS: AUTOMATED NEUTROPHIL # 1.5 TH/MM3 (1.8-7.7); EOSINOPHIL # 0.3 TH/MM3 (0-0.4); EOSINOPHIL % 6.1 % (0.0-4.0); HEMATOCRIT 41.1 % (35.0-46.0); HEMOGLOBIN 13.4 GM/DL (11.6-15.3); LYMPH % 42.2 % (9.0-44.0); LYMPHOCYTE # 1.9 TH/MM3 (1.0-4.8); MEAN CELL VOLUME 90.9 FL (80.0-100.0); MEAN CORPUSCULAR HEMOGLOBIN 29.7 PG (27.0-34.0); MEAN CORPUSCULAR HGB CONC 32.7 % (32.0-36.0); MEAN PLATELET VOLUME 9.5 FL (7.0-11.0); MONO % 17.6 % (0.0-8.0); MONOCYTE # 0.8 TH/MM3 (0-0.9); NEUT % 33.1 % (16.0-70.0); PLATELET COUNT 236 TH/MM3 (150-450); RED BLOOD COUNT 4.52 MIL/MM3 (4.00-5.30); WHITE BLOOD COUNT 4.4 TH/MM3 (4.0-11.0)
[2017-06-10 06:52] LABS: ALBUMIN 2.8 GM/DL (3.4-5.0); AST (GOT) 391 U/L (15-37); BICARBONATE 27.4 MEQ/L (21.0-32.0); BLOOD UREA NITROGEN 7 MG/DL (7-18); CALCIUM 8.5 MG/DL (8.5-10.1); CHLORIDE 103 MEQ/L (98-107); CREATININE 0.59 MG/DL (0.50-1.00); GLOMERULAR FILTRATION RATE 120 ML/MIN (>89); GLUCOSE,RANDOM 86 MG/DL (74-106); SODIUM (NA) 141 MEQ/L (136-145)
[2017-06-10 06:53] LABS: ALT (GPT) 385 U/L (10-53)
[2017-06-10 06:55] LABS: ALKALINE PHOSPHATASE 123 U/L (45-117); TOTAL BILIRUBIN ADULT 0.3 MG/DL (0.2-1.0); TOTAL PROTEIN 6.2 GM/DL (6.4-8.2)
[2017-06-10 08:24] VITALS: BP 107/59; PULSE 75; RESP 20; TEMP 97.9; O2SAT 98
[2017-06-10] MEDS: SODIUM CHLORIDE 0.9% FLUSH 10 ML FLUSH IV FLUSH SCH ×2 (08:35→21:01)
[2017-06-10] MEDS: MULTIVITAMINS/MINERALS THERAPEUTIC TAB PO SCH (08:35)
[2017-06-10] MEDS: THIAMINE HCL 100 MG TAB PO SCH (08:36)
[2017-06-10] MEDS: FOLIC ACID 1 MG TAB PO SCH (08:36)
[2017-06-10] MEDS: DOCUSATE SODIUM 50 MG/SENNA 8.6 MG TAB PO SCH ×2 (08:36→21:01)
[2017-06-10] MEDS: NICOTINE 21 MG/24 HR PATCH T-DERMAL SCH (08:37)
[2017-06-10] MEDS: lamoTRIgine 25 MG TAB PO SCH (08:37)
[2017-06-10 12:00] VITALS: BP 124/70; PULSE 65; RESP 20; TEMP 98.1; O2SAT 93
[2017-06-10 13:21] LABS: ALPHA-1-ANTITRYPSIN 154 mg/dL (100 - 190)
--- NOTE | 2017-06-10 14:22 | HHI.PR ---
Subjective Remarks Downward trend in transaminitis. Pancreatitis had improved yesterday. No further need at this point for a HIDA scan. EGD planned, patient ate Snickers bar this morning without informing anybody. EGD had to be canceled and is deferred till tomorrow. Objective Vital Signs Date Time Temp Pulse Resp B/P (MAP) Pulse Ox O2 Delivery O2 Flow Rate FiO2 06/10/17 12:00 98.1 65 20 124/70 (88) 93 06/10/17 08:24 97.9 75 20 107/59 (75) 98 06/10/17 04:54 98.1 64 20 118/56 (76) 94 06/10/17 00:54 97.9 60 20 105/61 (76) 95 06/09/17 21:16 98.2 59 20 116/68 (84) 96 06/09/17 15:31 97.8 75 20 110/57 (74) 95 I/O 06/09/17 06/09/17 06/09/17 06/10/17 06/10/17 06/10/17 07:00 15:00 23:00 07:00 15:00 23:00 # Voids 2 12 Result Diagram: 06/10/17 0355 06/10/17 0355 Objective Remarks GENERAL: NAD, A&Ox3 HEAD: Normocephalic. NECK: Supple, trachea midline. No lymphadenopathy. EYES: No scleral icterus. No injection or drainage. CARDIOVASCULAR: Regular rate and rhythm without murmurs, gallops, or rubs. RESPIRATORY: Breath sounds equal bilaterally. No accessory muscle use. GASTROINTESTINAL: Abdomen soft, non-tender, nondistended. MUSCULOSKELETAL: No cyanosis, or edema. SKIN: Warm and dry. NEURO: No focal neurological deficitis. A/P Problem List: (1) Pancreatitis ICD Code: K85.90 - Acute pancreatitis without necrosis or infection, unspecified Status: Acute Assessment and Plan 32-year-old female with a past medical history significant for IVDU, bipolar disorder and alcohol abuse presents the emergency department for the evaluation of epigastric pain. Improving. Plan for EGD tomorrow. Pancreatitis/Transaminitis/Abdominal pain Transaminitis is worsened Pancreatitis improving Continue to follow lipase and LFTs GI following Possible EGD HIDA scan ordered Hepatitis C Standard precautions Avoidance of IV drug abuse recommended Bipolar disorder Continue baseline treatments Alcohol abuse Monitor for delirium tremens Continue thiamine Continue folic acid Continue multivitamin Continue CIWA protocol DVT prophylaxis SCDs Problem Qualifiers (1) Pancreatitis: Qualified Codes: K85.90 - Acute pancreatitis without necrosis or infection, unspecified Pardeep Bateman MD June 10, 2017 14:22
[2017-06-10] MEDS: MAGNESIUM HYDROXIDE SUSP 30 ML CUP PO PRN (14:26)
--- NOTE | 2017-06-10 14:55 | HHI.GIFU ---
Subjective Remarks Pt sitting up in bed eating salad Reports some continued abdominal pain Complaining of some nausea today, denies emesis (Aline Garcia) Objective Vitals I&O Vital Signs Date Time Temp Pulse Resp B/P (MAP) Pulse Ox O2 Delivery O2 Flow Rate FiO2 06/10/17 12:00 98.1 65 20 124/70 (88) 93 06/10/17 08:24 97.9 75 20 107/59 (75) 98 06/10/17 04:54 98.1 64 20 118/56 (76) 94 06/10/17 00:54 97.9 60 20 105/61 (76) 95 06/09/17 21:16 98.2 59 20 116/68 (84) 96 06/09/17 15:31 97.8 75 20 110/57 (74) 95 I/O 06/09/17 06/09/17 06/09/17 06/10/17 06/10/17 06/10/17 07:00 15:00 23:00 07:00 15:00 23:00 # Voids 2 12 Laboratory Laboratory Tests Test 06/10/17 03:55 White Blood Count 4.4 Red Blood Count 4.52 Hemoglobin 13.4 Hematocrit 41.1 Mean Corpuscular Volume 90.9 Mean Corpuscular Hemoglobin 29.7 Mean Corpuscular Hemoglobin Concent 32.7 Red Cell Distribution Width 16.0 Platelet Count 236 Mean Platelet Volume 9.5 Neutrophils (%) (Auto) 33.1 Lymphocytes (%) (Auto) 42.2 Monocytes (%) (Auto) 17.6 Eosinophils (%) (Auto) 6.1 Basophils (%) (Auto) 1.0 Neutrophils # (Auto) 1.5 Lymphocytes # (Auto) 1.9 Monocytes # (Auto) 0.8 Eosinophils # (Auto) 0.3 Basophils # (Auto) 0.0 CBC Comment DIFF FINAL Differential Comment Blood Urea Nitrogen 7 Creatinine 0.59 Random Glucose 86 Total Protein 6.2 Albumin 2.8 Calcium Level 8.5 Alkaline Phosphatase 123 Aspartate Amino Transf (AST/SGOT) 391 Alanine Aminotransferase (ALT/SGPT) 385 Total Bilirubin 0.3 Sodium Level 141 Potassium Level 4.2 Chloride Level 103 Carbon Dioxide Level 27.4 Anion Gap 11 Estimat Glomerular Filtration Rate 120 Imaging Last Impressions Abdomen/Pelvis CT 06/07/17 0000 Signed Impressions: Service Date/Time: Wednesday, June 07, 2017 22:58 - CONCLUSION: 1. CT findings of gallbladder wall thickening. No calcified gallstones, however. 2. Periportal edema. Nonspecific finding that can be seen with some passive congestion. Jeramy Malhotra MD Physical Exam HEENT: Normocephalic; atraumatic CHEST: Even/unlabored CARDIAC: RRR ABDOMEN: Soft, nondistended, mild epigastric TTP; bowel sounds active EXTREMITIES: No clubbing, cyanosis, or edema. SKIN: Normal; no rash; no jaundice. RESIDENTIAL THERAPIST: No focal deficits; alert and oriented times three. (Aline Garcia) Assessment and Plan Plan Assessment: - Elevated LFTs Currently (06/10) --> AST-391 ALT-385 Alk phos-123 (+) Hepatitis C IgG antibody. Risk factors: History of IVDU, 1 tattoo done at a friends house history of blood transfusion. Denies high risk sexual behaviors. Admits to Drinking approx 6 beers 3-4 times a week Denies known history of liver issues Liver NIELSEN: DAVID, AMA, ASMA, Ceruloplasmin pending A1A- 154 Iron-32 TIBC-434 %sat-7.4 Ferritin-30 - Abdominal pain- RUQ and epigastric TTP Associated nausea, denies emesis CT abdomen and pelvis W IV contrast (06/07) --> CT findings of gallbladder wall thickening. No calcified gallstones, however. Periportal edema. Nonspecific finding that can be seen with some passive congestion. Has never had EGD or colonoscopy before - Elevated lipase with CT findings of normal pancreas- lipase now WNL Plan: EGD tomorrow Obtain consent NPO after MN Monitor LFTs Liver work up pending Avoid ETOH and hepatotoxins Further recommendations based on clinical course and results of above Pt has been seen and examined by myself and Dr. Shepherd and this note is written on his behalf (Aline Garcia) Plan Patient ate today, unable to do an endoscopy, patient will have it tomorrow (Gerry Shepherd MD) Aline Garcia June 10, 2017 14:55 Gerry Shepherd MD June 10, 2017 23:09
[2017-06-10 15:12] LABS: SMOOTH MUSCLE TOTAL AUTOABS Negative (Negative)
[2017-06-10 16:00] VITALS: BP 109/53; PULSE 76; RESP 20; TEMP 97.8; O2SAT 93
[2017-06-10 20:04] VITALS: BP 123/66; PULSE 68; RESP 20; TEMP 97.4; O2SAT 100
[2017-06-10] MEDS: REMOVE OLD PATCH T-DERMAL SCH (21:00)
[2017-06-10] MEDS: traZODone HCL 100 MG TAB PO SCH (21:01)
[2017-06-11] MEDS: MORPHINE SULFATE 4 MG/ML INJ IV PUSH PRN ×6 (00:05→18:11)
[2017-06-11 00:17] VITALS: BP 123/71; PULSE 60; RESP 20; TEMP 98; O2SAT 95
[2017-06-11] MEDS ORDERED: INSULIN HUMAN REGULAR 1,000 UNITS/10 ML VIAL SQ PRN (03:30)
[2017-06-11] MEDS ORDERED: METOPROLOL TARTRATE 25 MG TAB PO PRN (03:30)
[2017-06-11] MEDS ORDERED: POVIDONE IODINE 5% (ANTISEPSIS KIT) 4 APPLICATIONS EACH NARE PRN (03:30)
[2017-06-11] MEDS ORDERED: LACTATED RINGER'S 1000 ML IV PRN (03:30)
[2017-06-11] MEDS ORDERED: SODIUM CHLORID 0.9% 500 ML IV PRN (03:30)
[2017-06-11] MEDS ORDERED: CHLORHEXIDINE GLUCONATE 2 % 1 PACK (2 CLOTHS) TOPICAL PRN (03:30)
[2017-06-11] MEDS: SODIUM CHLOR 0.9% 1000 ML INJ 1,000 ML IV SCH ×2 (03:51→11:55)
[2017-06-11 04:43] VITALS: BP 103/59; PULSE 67; RESP 20; TEMP 98.1; O2SAT 93
[2017-06-11] MEDS: THIAMINE HCL 100 MG TAB PO SCH (07:51)
[2017-06-11] MEDS: DOCUSATE SODIUM 50 MG/SENNA 8.6 MG TAB PO SCH (07:51)
[2017-06-11] MEDS: MULTIVITAMINS/MINERALS THERAPEUTIC TAB PO SCH (07:51)
[2017-06-11] MEDS: lamoTRIgine 25 MG TAB PO SCH (07:51)
[2017-06-11] MEDS: FOLIC ACID 1 MG TAB PO SCH (07:52)
[2017-06-11] MEDS: SODIUM CHLORIDE 0.9% FLUSH 10 ML FLUSH IV FLUSH SCH (07:52)
[2017-06-11] MEDS: REMOVE OLD PATCH T-DERMAL SCH (07:53)
[2017-06-11] MEDS: NICOTINE 21 MG/24 HR PATCH T-DERMAL SCH (07:55)
[2017-06-11 08:00] VITALS: BP 126/77; PULSE 59; RESP 16; TEMP 97.9; O2SAT 95
[2017-06-11 08:21] LABS: AUTOMATED NEUTROPHIL # 1.3 TH/MM3 (1.8-7.7); BASOPHIL % 0.9 % (0.0-2.0); EOSINOPHIL # 0.3 TH/MM3 (0-0.4); HEMATOCRIT 38.6 % (35.0-46.0); HEMOGLOBIN 12.7 GM/DL (11.6-15.3); LYMPH % 48.7 % (9.0-44.0); LYMPHOCYTE # 2.1 TH/MM3 (1.0-4.8); MEAN CELL VOLUME 89.9 FL (80.0-100.0); MEAN CORPUSCULAR HEMOGLOBIN 29.6 PG (27.0-34.0); MEAN PLATELET VOLUME 8.7 FL (7.0-11.0); MONO % 14.4 % (0.0-8.0); MONOCYTE # 0.6 TH/MM3 (0-0.9); PLATELET COUNT 228 TH/MM3 (150-450); RED BLOOD COUNT 4.29 MIL/MM3 (4.00-5.30); RED CELL DISTRIBUTION WIDTH 15.9 % (11.6-17.2); WHITE BLOOD COUNT 4.3 TH/MM3 (4.0-11.0)
[2017-06-11 08:42] LABS: ALBUMIN 2.5 GM/DL (3.4-5.0); AST (GOT) 160 U/L (15-37); BICARBONATE 26.5 MEQ/L (21.0-32.0); BLOOD UREA NITROGEN 11 MG/DL (7-18); CALCIUM 8.2 MG/DL (8.5-10.1); CHLORIDE 108 MEQ/L (98-107); CREATININE 0.61 MG/DL (0.50-1.00); GLOMERULAR FILTRATION RATE 115 ML/MIN (>89); GLUCOSE,RANDOM 88 MG/DL (74-106); SODIUM (NA) 143 MEQ/L (136-145)
[2017-06-11 08:45] LABS: ALKALINE PHOSPHATASE 99 U/L (45-117); ALT (GPT) 251 U/L (10-53); TOTAL BILIRUBIN ADULT 0.3 MG/DL (0.2-1.0); TOTAL PROTEIN 5.8 GM/DL (6.4-8.2)
[2017-06-11] MEDS: BENZONATATE 100 MG CAP PO PRN (10:53)
[2017-06-11] MEDS ORDERED: PROPOFOL 200 MG/20 ML AMP IV ONE (12:00)
[2017-06-11 12:59] VITALS: BP 135/78; PULSE 62; RESP 18; TEMP 98.1; O2SAT 97
[2017-06-11] MEDS ORDERED: NORC5TAB PO (15:49)
[2017-06-11] MEDS ORDERED: BENZ100 PO (15:49)
--- NOTE | 2017-06-11 15:52 | HHI.DS ---
Discharge Summary Admission Date June 07, 2017 at 23:42 Discharge Date: June 11, 2017 Admitting Diagnosis Pancreatitis, transaminitis (1) Pancreatitis ICD Code: K85.90 - Acute pancreatitis without necrosis or infection, unspecified Diagnosis: Principal Status: Acute (2) Gastric ulcer ICD Code: K25.9 - Gastric ulcer, unspecified as acute or chronic, without hemorrhage or perforation Diagnosis: Principal Procedures EGD Brief History - From Admission 32-year-old female with a past medical history significant for bipolar disorder and alcohol abuse presents the emergency department for the evaluation of epigastric pain. The patient reports that the pain started yesterday and that it is isolated to the epigastrium. She states it is a sharp, knifelike pain. She has been nauseated but no emesis/diarrhea. Denies any chest pain or shortness of breath. Denies any fever/chills. No weakness or fatigue. No lateralizing signs/symptoms. CBC/BMP: 06/11/17 0718 06/11/17 0718 Significant Findings Laboratory Tests Test 06/09/17 06:00 06/10/17 03:55 06/11/17 07:18 Monocytes (%) (Auto) 13.7 % (0.0-8.0) 17.6 % (0.0-8.0) 14.4 % (0.0-8.0) Eosinophils (%) (Auto) 5.1 % (0.0-4.0) 6.1 % (0.0-4.0) 6.0 % (0.0-4.0) Blood Urea Nitrogen 2 MG/DL (7-18) Total Protein 5.8 GM/DL (6.4-8.2) 6.2 GM/DL (6.4-8.2) 5.8 GM/DL (6.4-8.2) Albumin 2.6 GM/DL (3.4-5.0) 2.8 GM/DL (3.4-5.0) 2.5 GM/DL (3.4-5.0) Calcium Level 8.2 MG/DL (8.5-10.1) 8.2 MG/DL (8.5-10.1) Alkaline Phosphatase 121 U/L (45-117) 123 U/L (45-117) Aspartate Amino Transf (AST/SGOT) 586 U/L (15-37) 391 U/L (15-37) 160 U/L (15-37) Alanine Aminotransferase (ALT/SGPT) 450 U/L (10-53) 385 U/L (10-53) 251 U/L (10-53) Iron Level 32 MCG/DL (50-170) Percent Iron Saturation 7.4 % (20-50) Acetaminophen Level LESS THAN 2.0 MCG/ML Anti-Nuclear Antibody Screen POS (NEG) Neutrophils # (Auto) 1.5 TH/MM3 (1.8-7.7) 1.3 TH/MM3 (1.8-7.7) Lymphocytes (%) (Auto) 48.7 % (9.0-44.0) Chloride Level 108 MEQ/L (98-107) PE at Discharge GENERAL: Well-nourished, well-developed young female patient in [facility]. SKIN: Warm and dry. No rash. HEENT: Normocephalic. Atraumatic. Pupils equal and round. Mucous membranes pink and moist. NECK: Supple. Trachea midline. CARDIOVASCULAR: Regular rate and rhythm. S1, S2 noted. No murmur appreciated. RESPIRATORY: No accessory muscle use. Clear to auscultation. Breath sounds equal bilaterally. GASTROINTESTINAL: Abdomen soft, nondistended, epigastric and RUQ TTP. Normoactive bowel sounds x4. MUSCULOSKELETAL: No obvious deformities. Extremities without clubbing, cyanosis , or edema. NEUROLOGICAL: Awake and alert. No obvious cranial nerve deficits. Motor grossly within normal limits. Normal speech. PSYCHIATRIC: Appropriate mood and affect; insight and judgment normal. Hospital Course Ms. Dominguez is a 32-year-old female. She is admitted secondary to acute pancreatitis. This appears to be related to alcohol. She also had evidence of hepatitis based on transaminitis. She has a decline with her transaminitis and lipase through time. Symptoms are slowly improving. EGD was performed and revealed superficial gastric ulcers. She has been cleared for discharge, by GI , today and is medically stable for discharge. She is recommended to avoid NSAIDS and Alcohol. PPI recommended. Two week follow up with GI. Pt Condition on Discharge: Stable Discharge Disposition: Discharge Home Discharge Time: <= 30 minutes Discharge Instructions Follow up Referrals: Gastroenterology - 2 Weeks with Laura Bradley MD PCP Follow-up - 2 Weeks New Medications: Hydrocodone-Acetaminophen (Alda) 5 Mg-325 Mg Tab 1 TAB PO Q6H PRN for PAIN, #15 TAB 0 Refills Benzonatate (Tessalon Perles) 100 Mg Cap 100 MG PO Q8H PRN for COUGH, #15 CAP Continued Medications: Lamotrigine (Lamictal) 25 Mg Tab 25 MG PO DAILY for Control Seizures, #30 TAB 0 Refills Trazodone (Trazodone) 100 Mg Tablet 100 MG PO HS for Control Depression, #30 TAB 0 Refills Pardeep Bateman MD June 11, 2017 15:52
--- NOTE | 2017-06-11 16:47 | GIPROC ---
[facility] [address] [facility], [address] EGD PROCEDURE REPORT EXAM DATE: 06/11/2017 PATIENT NAME: Margot Dominguez MR #: [id number] BIRTHDATE: 1985 ATTENDING: Laura Bradley MD ORDER #: [id number] HEALTHCARE RECEPTIONIST: Clare Coombs STATUS: inpatient INDICATIONS: The patient is a 32 yr old female here for an EGD due to nausea, vomiting abdominal pain PROCEDURE PERFORMED: EGD w/ biopsy MEDICATIONS: None and Per Anesthesia. TOPICAL ANESTHETIC: none CONSENT: The patient understands the risks and benefits of the procedure and understands that these risks include, but are not limited to: sedation, allergic reaction, infection, perforation and/or bleeding. Alternative means of evaluation and treatment include, among others: physical exam, x-rays, and/or surgical intervention. The patient elects to proceed with this endoscopic procedure. medical equipment was checked for proper function. Hand hygiene and appropriate measures for infection prevention was taken. After the risks, benefits and alternatives of the procedure were thoroughly explained, Informed consent was verified, confirmed and timeout was successfully executed by the treatment team. The patient was anesthetized with topical anesthesia and the Pentax [id number] endoscope was introduced through the mouth and advanced to the second portion of the duodenum. Retroflexed views revealed a hiatal hernia The gastroscope was then slowly withdrawn and removed. Superficial ulcerations antrum-biopsy esophagitis distal esophagus-biopsy duodenum normal-biopsy. ADVERSE EVENTS: There were no complications. IMPRESSIONS: 1. Superficial ulcerations antrum-biopsy esophagitis distal esophagus-biopsy duodenum normal-biopsy 2. Retroflexed views revealed a hiatal hernia RECOMMENDATIONS: 1. Await biopsy results. Biopsy results will not be ready for 7-10 days. If you don't hear from us in two weeks, call our office for biopsy results. 2. Anti-reflux regimen 3. Continue PPI 4. Avoid NSAIDS 5. Ok to dc home from gi poitn fu gi in 4 weeks avoid etoh, hepatotoxics PATIENT CONDITION: stable DISPOSITION: Inpatient REPEAT EXAM: Return 1 year EGD Laura Bradley MD eSigned: Laura Bradley MD 06/11/2017 4:47 PM cc: PATIENT NAME: Margot Dominguez Ena MR#: [id number]
[2017-06-11] MEDS ORDERED: MIDAZOLAM HCL 2 MG/2 ML VIAL ONE (16:51)
[2017-06-11 16:52] VITALS: BP 138/81; PULSE 64; RESP 18; TEMP 97.5; O2SAT 98
[2017-06-11 16:59] VITALS: BP 121/81; PULSE 61; RESP 16; O2SAT 96
[2017-06-11] MEDS ORDERED: DO NOT ADM ANY ANTICOAGULANT DRUGS PRN (17:30)
[2017-06-11 17:50] LABS: CERULOPLASMIN 27 mg/dL (18-53)
[2017-06-11] MEDS ORDERED: OMEP40CA2 PO (18:18)
[2017-06-11 23:53] LABS: MITOCHONDRIAL ABS LESS THAN 20.0 U (<=20.0)
[2017-06-12 07:52] LABS: HCV RNA PCR IU/ML 23100 IU/mL (Not Detected)
[2017-06-13 13:03] LABS: ANA PATTERN NUCLEOLAR
== END 2017-06-11 19:58 | disposition home or self-care (01) | DRG 440 ==
LOC: NEPD 20:18 → NEDA 23:42 → NEPHCDU 06-08 03:29 → N05A 06-08 17:44
PROVIDERS: ADMIT Hospitalist; ATTEND Hospitalist
PROC: 0DB78ZX Excision of Stomach, Pylorus, Via Natural or Artificial Opening Endoscopic, Diagnostic (ICD-10-PCS; 2017-06-11)
PROC: 0DB58ZX Excision of Esophagus, Via Natural or Artificial Opening Endoscopic, Diagnostic (ICD-10-PCS; 2017-06-11)
PROC: 0DB98ZX Excision of Duodenum, Via Natural or Artificial Opening Endoscopic, Diagnostic (ICD-10-PCS; principal; 2017-06-11 16:28)
DX: K85.90 Acute pancreatitis without necrosis or infection, unspecified (principal); K25.9 Gastric ulcer, unspecified as acute or chronic, without hemorrhage or perforation; F14.10 Cocaine abuse, uncomplicated; F31.9 Bipolar disorder, unspecified; F10.10 Alcohol abuse, uncomplicated; F12.90 Cannabis use, unspecified, uncomplicated; B19.20 Unspecified viral hepatitis C without hepatic coma; K44.9 Diaphragmatic hernia without obstruction or gangrene; K20.9 Esophagitis, unspecified; Z72.0 Tobacco use
CPT/HCPCS: 74177; 80053; 80074; 80307; 81001; 82103; 82390; 82728; 83520; 83540; 83550; 83690; 84703; 85025; 86038; 86039; 86255; 87522; 87902; 88305; 88312; 90686; 96361; 96374; 96375; J1885; J2250; J2270; J2405; J3010; J7030; Q2038; Q9967